=== PATIENT | female | born 1955 | race Asian ===

== ENCOUNTER 2021-01-19 18:46 | Emergency (ER) | payer OTHER ==
[~2021-01-19] VITALS: Ht 149.9 cm; Wt 40.0 kg
[2021-01-19] MEDS ORDERED: ACETAMINOPHEN 325MG TABLET PO ONE (19:15)
[2021-01-19] MEDS ORDERED: IBUP-2028 PO (19:47)
[2021-01-19 20:25] VITALS: BP 95/57
== END 2021-01-19 20:39 | disposition home or self-care (01) ==
LOC: ER 18:46
DX: S52.591A Other fractures of lower end of right radius, initial encounter for closed fracture (principal); S52.611A Displaced fracture of right ulna styloid process, initial encounter for closed fracture; W01.0XXA Fall on same level from slipping, tripping and stumbling without subsequent striking against object, initial encounter; Y93.89 Activity, other specified; Y92.89 Other specified places as the place of occurrence of the external cause
CPT/HCPCS: 29105; 73070; 73110; 99284; A4565